=== PATIENT | male | born 1940 | race Caucasian/White ===

== ENCOUNTER 2016-05-28 21:58 | Emergency (ER) | payer MEDICARE ==
[~2016-05-28] VITALS: Ht 170.2 cm; Wt 72.0 kg
[2016-05-28 22:03] VITALS: BP 168/86; RESP 22; O2SAT 95
--- NOTE | 2016-05-28 22:51 | ED.REPORT ---
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 Patient reports that he was eating at steak and accidently swallowed a large piece. He is currently experiencing mild esophageal discomfort. Patient is able to speak and able to move air. He denies any other medical complaints at this time. Nursing Notes Stated Complaint: CHOKING ON A PIECE OF STEAK Chief Complaint: ENT & Mouth Nursing Notes Reviewed: Yes Allergies: Coded Allergies: No Known Allergies (Unverified , 12/28/15) General Time Seen by MD: 22:50 Chief Complaint Other (FB in Esophagus ) Hx Obtained From: Patient Arrived By: Walk-in Sudden in Onset?: Yes Onset Occurred: 1 - 4 hours ago Symptom Duration: Since onset Caused by: Accidental Location: : Mouth (Throat) Quality: Aching Radiation: : Does not radiate Severity: Current: Mild Severity: Maximum: Mild Associated with: Reports: Difficulty swallowing Pertinent Negative: Pt denies other symptoms Recent Healthcare: No recent doctor visit, No recent hospitalization Past Medical History Past Medical History Notes: PCP: [facility] Past Medical History Inclusion body myopathy Denies: Diabetes mellitus, Hypertension Past Surgical History None reported Smoking History Unknown if Ever Smoker Social History Alcohol Use: "Social" Other Social History: Good social support, Local resident Ambulatory Status Independent Review of Systems FB in esophagus Full Review of Systems Constitutional: Denies: Chills, Fever Ears / Nose / Throat: Reports: Throat pain (Throat discomfort ) GI: Denies: Nausea, Vomiting Neurologic: Denies: Change LOC Complete sys rev & neg: except as marked. Physical Exam Vital Signs Vital Signs Date Time Temp Pulse Resp B/P Pulse Ox O2 Delivery O2 Flow Rate FiO2 05/28/16 22:03 36.8 88 22 168/86 95 Room Air Initial VS: Reviewed Neck: Supple, Non-tender, Full range of motion Extremities: Vascular intact, Neuro intact, No swelling, No tenderness Skin: Warm, Dry, No cyanosis Neurologic: Alert, Oriented, Nonfocal Psychiatric: Mood/affect normal, Behavior normal, Normal thought content General/Constitutional: Awake, Alert GENERAL: Voice is muffled Head / Eyes: Atraumatic, Normocephalic, PERRL ENT: Atraumatic, Airway patent, Mucous membranes moist, Pharynx NL Respiratory / Chest: Atraumatic, Breath sounds NL, Breath sounds = bilat, No respiratory distress Re-Eval/Medical Decision Time of Eval: 23:01 Patient Status: Condition improved, Complete relief, Pain resolved Re-Evaluation/Progress Note: Patient is given glucagon and soda. He tolerates them well. Patient was able to swallow and reports that his symptoms have completely resolved. All questions are addressed and he agrees with the treatment plan to discharge with follow up. Counseled Regarding: Diagnosis, Need for follow-up, When/why to return to ED Discharge & Departure Primary Impression: Food impaction of esophagus Encounter type: initial encounter Qualified Code: T18.128A - Food in esophagus causing other injury, initial encounter Disposition: Home Discharge Condition All VS Reviewed: Yes Condition: Improved Additional Instructions: We are very glad that the food impaction has resolved. Please follow up with your neurologist for further evaluation of this. Chew slowly, eat slowly. Return to the ED if you have recurrence of this, fevers or shortness of breath. Referrals: [facility] (PCP) [facility] Attestation Portions of this note were transcribed by Brittani Hill. I, Dr. Israel personally performed the history, physical exam and medical decision-making; I reviewed and confirmed the accuracy of the information in the transcribed note. Signed by: Rula Ibarra, 05/29/16 Amanda. Anjum Israel MD May 28, 2016 22:51 BRITTANI HILL May 28, 2016 22:58
[2016-05-28] MEDS ORDERED: Glucagon 1 mg/mL Inj IV ONE (23:00)
[2016-05-28 23:49] VITALS: BP 180/83; PULSE 77; RESP 16; O2SAT 96
== END 2016-05-28 23:50 | disposition home or self-care (01) ==
LOC: SED 21:58
DX: T18.128A Food in esophagus causing other injury, initial encounter (principal); X58.XXXA Exposure to other specified factors, initial encounter; Y93.89 Activity, other specified; Y92.9 Unspecified place or not applicable; Y99.8 Other external cause status
CPT/HCPCS: 96374; 99284; J1610